=== PATIENT | male | born 1940 | race Caucasian/White ===

== ENCOUNTER 2018-11-11 16:26 | Emergency (ER) | payer MEDICARE ==
[~2018-11-11] VITALS: Ht 162.6 cm; Wt 74.8 kg
[~2018-11-11 16:26] MED LIST: ACETAMINOPHEN325 M1 PO; ASPIRIN EC81 MG PO; CALCIUM + VITA1 EACH PO; CIPROFLOXACIN500 MG PO; FLOMAX0.4 MG PO; GABAPENTIN300 MG PO; GARLIC1000 MG PO; IBUPROFEN800 MG PO; LISINOPRIL5 MG PO; METHOCARBAMOL750 MG PO; MIRALAX17 GM PO; NORCO 5-325 TA1 EACH PO; OXYCODONE HCL5 MG PO; PYRIDIUM200 MG PO; XARELTO10 MG PO; [UNRECOGNIZED DRUG - OTHER] PO
[2018-11-11] MEDS ORDERED: ALBUTEROL1.25 MG/3 INH (16:44)
[2018-11-11] MEDS ORDERED: VENTOLIN HFA18 GM INH (16:45)
[2018-11-11] MEDS ORDERED: ZITHROMAX500 MG PO (19:09)
[2018-11-11] MEDS ORDERED: CEFDINIR300 MG PO (19:09)
== END 2018-11-11 19:22 | disposition left against medical advice (07) ==
LOC: ED 16:26
DX: J44.0 Chronic obstructive pulmonary disease with (acute) lower respiratory infection (principal); J18.1 Lobar pneumonia, unspecified organism; I10 Essential (primary) hypertension; Z90.49 Acquired absence of other specified parts of digestive tract; Z88.0 Allergy status to penicillin; Z88.2 Allergy status to sulfonamides; Z88.5 Allergy status to narcotic agent; Z88.8 Allergy status to other drugs, medicaments and biological substances; Z79.899 Other long term (current) drug therapy
CPT/HCPCS: 71046; 80053; 83735; 83880; 84484; 85025; 94640; 96365; 99284-25; J0696

== ENCOUNTER 2019-07-19 23:10 | Emergency (ER) | payer MEDICARE ==
[~2019-07-19] VITALS: Ht 162.6 cm; Wt 68.9 kg
--- OUTSIDE RECORDS SUMMARY | ~2019-07-19 | XMS | Clinical Summary ---
Demographics + + + | Address | [address] | | | [place] [address] | + + + | Home Phone | | + + + | Preferred Language | Unknown | + + + | Marital Status | | + + + | Voodoo Affiliation | Unknown | + + + | Race | Unknown | + + + | Ethnic Group | Unknown | + + + Author + + + | Author | [facility] | | | and [place] | + + + | Organization | [facility] | | | and [place] | + + + | Address | Unknown | + + + | Phone | Unavailable | + + + Support + + + + + | Name | Relationship | Address | Phone | + + + + + | Carmen Schafer | ECON | [place] | | | | | [phone] | | + + + + + Care Team Providers + +------+ + | Care Water Main Inspector Name | Role | Phone | + +------+ + | Roland Waters MD | PCP | | + +------+ + Allergies + + + + + + | Active Allergy | Reactions | Severity | Noted | Comments | | | | | Date | | + + + + + + | Corticosteroids | | | 04/10/20 | | | | | | 16 | | + + + + + + | Morphine | | | 04/10/20 | | | | | | 16 | | + + + + + + | Penicillins | | | 04/10/20 | | | | | | 16 | | + + + + + + | Sulfa Antibiotics | | | 04/10/20 | | | | | | 16 | | + + + + + + Medications + + + +---------+------+------+-------+ | Medication | Sig | Dispensed | Refills | Star | End | Statu | | | | | | t | Date | s | | | | | | Date | | | + + + +---------+------+------+-------+ | Calcium | Take 2,000 mg by | | 0 | | | Activ | | Carb-Cholecalciferol | mouth Daily. | | | | | e | | (CALCIUM-VITAMIN | | | | | | | | D3) 600-400 MG-UNIT | | | | | | | | CAPS | | | | | | | + + + +---------+------+------+-------+ | gabapentin | Take 300 mg by mouth | | 0 | | | Activ | | (NEURONTIN) 300 mg | 2 times daily. | | | | | e | | capsule | | | | | | | + + + +---------+------+------+-------+ | Garlic 1000 MG | Take 2,000 mg by | | 0 | | | Activ | | CAPS | mouth. | | | | | e | + + + +---------+------+------+-------+ | lisinopril | Take 5 mg by mouth | | 0 | | | Activ | | (PRINIVIL, ZESTRIL) | Daily. | | | | | e | | 5 mg tablet | | | | | | | + + + +---------+------+------+-------+ | polyethylene | Take 17 g by mouth | | 0 | | | Activ | | glycol (MIRALAX) | Daily. | | | | | e | | powder | | | | | | | + + + +---------+------+------+-------+ | oxyCODONE | Take 5 mg by mouth | | 0 | | | Activ | | (ROXICODONE) 5 mg | every 4 hours as | | | | | e | | tablet | needed for Pain. | | | | | | + + + +---------+------+------+-------+ | | Take 1 tablet by | | 0 | | | Activ | | HYDROcodone-acetamin | mouth every 6 hours | | | | | e | | ophen (NORCO) | as needed for Pain. | | | | | | | 7.5-325 mg per | | | | | | | | tablet | | | | | | | + + + +---------+------+------+-------+ | varenicline | Take 1 mg by mouth 2 | | 0 | | | Activ | | (CHANTIX) 1 MG | times daily. | | | | | e | | tablet | | | | | | | + + + +---------+------+------+-------+ | Multiple | Take by mouth | | 0 | | | Activ | | Vitamins-Minerals | Daily. | | | | | e | | (MULTIVITAMIN PO) | | | | | | | + + + +---------+------+------+-------+ Active Problems + + + | Problem | Noted Date | + + + | Trochanteric bursitis of both hips | 05/20/2016 | + + + | Lumbar spinal stenosis- L2/L3, L3/L4, L4/L5 - severe | 04/14/2016 | + + + | Lumbar radiculopathy- left | 04/14/2016 | + + + | DDD (degenerative disc disease), lumbar | 04/14/2016 | + + + Family History + + +------+ + | Medical History | Relation | Name | Comments | + + +------+ + | Hypertension | Brother | | | + + +------+ + | Arthritis | Father | | | + + +------+ + | Cancer | Maternal | | | | | Grandmoth | | | | | er | | | + + +------+ + | Arthritis | Mother | | | + + +------+ + | Diabetes | Mother | | | + + +------+ + | Heart disease | Mother | | | + + +------+ + | Hypertension | Mother | | | + + +------+ + | Arthritis | Other | | sibling | + + +------+ + | Other (see comment) | Other | | JOINT REPLACEMENT SIBLING | + + +------+ + | Arthritis | Other | | grandmother | + + +------+ + | Arthritis | Other | | grandfather | + + +------+ + | Arthritis | Other | | uncle | + + +------+ + | Arthritis | Other | | aunt | + + +------+ + + +------+ + + | Relation | Name | Status | Comments | + +------+ + + | Brother | | | | + +------+ + + | Father | | | Heart Failure | | | | (Age | | | | | 88) | | + +------+ + + | Maternal Grandmother | | | Cancer | | | | (Age | | | | | 63) | | + +------+ + + | Mother | | | Drowned | | | | (Age | | | | | 39) | | + +------+ + + | Other | | | | + +------+ + + | Other | | | | + +------+ + + | Other | | | | + +------+ + + | Other | | | | + +------+ + + | Other | | | | + +------+ + + Social History + + + +--------+ + | Tobacco Use | Types | Packs/Day | Years | Date | | | | | Used | | + + + +--------+ + | Former Smoker | Cigarettes | 1 | 65 | Quit: 04/07/2016 | + + + +--------+ + + + +---------+ + | Alcohol Use | Drinks/We | oz/Week | Comments | | | ek | | | + + +---------+ + | Yes | 0 | 0.0 | more than twice a week | | | Standard | | | | | drinks or | | | | | | | | | | equivalen | | | | | t | | | + + +---------+ + + + + | Sex Assigned at | Date Recorded | | | | + + + | Not on file | | + + + + + + + | Job Start Date | Occupation | Industry | + + + + | Not on file | Not on file | Not on file | + + + + + + + + | Travel History | Travel Start | Travel End | + + + + + + | No recent travel history available. | + + Last Filed Vital Signs + + + + | Vital Sign | Reading | Time Taken | + + + + | Blood Pressure | 146/66 | 05/20/20168 PDT | + + + + | Pulse | 60 | 05/20/20168 PDT | + + + + | Temperature | - | - | + + + + | Respiratory Rate | - | - | + + + + | Oxygen Saturation | - | - | + + + + | Inhaled Oxygen | - | - | | Concentration | | | + + + + | Weight | 74.4 kg (164 lb) | 05/20/20161317 PDT | + + + + | Height | 162.6 cm (5' 4") | 05/20/20161317 PDT | + + + + | Body Mass Index | 28.15 | 05/20/20161317 PDT | + + + + Plan of Treatment + + + + + | Health Maintenance | Due Date | Last Done | Comments | + + + + + | Vaccine: | | | | | Dtap/Tdap/Td (1 - | 7 | | | | Tdap) | | | | + + + + + | Vaccine: Zoster (1 | | | | | of 2) | 8 | | | + + + + + | Vaccine: | | | | | Pneumococcal 65+ | 3 | | | | Low/Medium Risk (1 | | | | | of 2 - PCV13) | | | | + + + + + | Vaccine: Influenza | | | | | (#1) | 9 | | | + + + + + Results Not on filefrom Last 3 Months Advance Directives Patient has advance care planning documents on file. For more information, please contact:[facility] [place] [address]
--- OUTSIDE RECORDS SUMMARY | ~2019-07-19 | XMS | Clinical Summary ---
Demographics + + + | Address | [address] | | | [place] [address] | + + + | Home Phone | | + + + | Preferred Language | Unknown | + + + | Marital Status | | + + + | Religion Affiliation | Unknown | + + + | Race | Unknown | + + + | Ethnic Group | Unknown | + + + Author + + + | Author | [facility] | | | and [place] | + + + | Organization | [facility] | | | and [place] | + + + | Address | Unknown | + + + | Phone | Unavailable | + + + Support + + + + + | Name | Relationship | Address | Phone | + + + + + | Carmen Schafer | ECON | [place] | | | | | [phone] | | + + + + + Care Team Providers + +------+ + | Care Plastic Extruding Machine Operator Name | Role | Phone | + [...] documents on file. For more information, please contact:[facility] [place] [address]
[~2019-07-19 23:10] MED LIST changes: +ALBUTEROL1.25 MG/3 INH; +CEFDINIR300 MG PO; +VENTOLIN HFA18 GM INH; +ZITHROMAX500 MG PO
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
== END 2019-07-20 01:48 | disposition home or self-care (01) ==
LOC: ED 23:10
DX: J32.9 Chronic sinusitis, unspecified (principal); I10 Essential (primary) hypertension; Z87.891 Personal history of nicotine dependence; Z88.0 Allergy status to penicillin; Z88.2 Allergy status to sulfonamides; Z88.5 Allergy status to narcotic agent; Z88.8 Allergy status to other drugs, medicaments and biological substances; Z79.899 Other long term (current) drug therapy
CPT/HCPCS: 71045; 80053; 81001; 85025; 96361; 96374; 96375; 99284-25; J1200; J1885; J2765; J7030

== ENCOUNTER 2020-04-09 14:18 | Emergency (ER) | payer MEDICARE ==
[~2020-04-09] VITALS: Ht 162.6 cm; Wt 69.0 kg
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
[2020-04-09] MEDS ORDERED: [UNRECOGNIZED DRUG - OTHER] PO (14:32)
[2020-04-09] MEDS ORDERED: METOPROLOL TART25 MG PO (14:33)
--- NOTE | 2020-04-09 15:32 | EKG ---
[facility] [address] [place] [address] Signed Sinus rhythm with premature atrial complexes Low voltage QRS Borderline ECG When compared with ECG of 29-SEP-2016 17:03, premature atrial complexes are now present Confirmed by CARIE WALDRON MD ([id number]) on 04/09/2020 3:32:24 PM Electronically Signed By: CARIE WALDRON MD 04/09/20 1532 PATIENT NAME: GENET KIRAN Electrocardiogram DATE OF : 36 PHYSICIAN: CARIE WALDRON MD REPORT #: [id number] REPORT IS CONFIDENTIAL AND NOT TO BE RELEASED WITHOUT AUTHORIZATION
[2020-04-09] MEDS ORDERED: PREDNISONE20 MG PO (16:27)
== END 2020-04-09 17:01 | disposition home or self-care (01) ==
LOC: ED 14:18
DX: J44.1 Chronic obstructive pulmonary disease with (acute) exacerbation (principal); I10 Essential (primary) hypertension; F17.200 Nicotine dependence, unspecified, uncomplicated; Z88.0 Allergy status to penicillin; Z88.2 Allergy status to sulfonamides; Z88.5 Allergy status to narcotic agent; Z88.8 Allergy status to other drugs, medicaments and biological substances; Z79.899 Other long term (current) drug therapy
CPT/HCPCS: 36415; 71045; 80053; 83735; 84484; 85025; 93005; 93010; 96374; 99285-25; C9803; J2930; U0002

== ENCOUNTER 2021-12-16 22:01 | Observation (INO) | payer MEDICARE ==
[~2021-12-16] VITALS: Ht 162.6 cm; Wt 54.7 kg
[~2021-12-16 22:01] MED LIST changes: +METOPROLOL TART25 MG PO; +PREDNISONE20 MG PO; +[UNRECOGNIZED DRUG - OTHER] PO
--- OUTSIDE RECORDS SUMMARY | 2021-12-16 22:04 | XMS ---
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 Security Tile Erector Events No recent Security Events currently on file CRITERIA MET - [facility] CARE PROVIDERS LOU BARBOZA Physician Shredding Floor Equipment Operator Current PHONE: [phone] ISABELLE NICHOLE [facility] 11/15/2018-Current PHONE: Unknown Marjorie has no Care Guidelines for this patient. Care History Medical/Surgical 04/11/2020 [facility] Request sent to [facility] via telephone for referral to perform rest and exercise oximetry. E.D. VISIT COUNT (12 MO.) [address] [place] [address] TOTAL 1 NOTE: Visits indicate total known visits. ED/UCC VISIT TRACKING (12 MO.) 12/16/2021 22:01 [facility] [place] TYPE: Emergency COMPLAINT: - HEAD INJURY INPATIENT VISIT TRACKING (12 MO.) No inpatient visits to display in this time frame [id number]
--- NOTE | 2021-12-17 00:29 | NUR ---
TELEPHONE REPORT RECEIVED FROM ED JONAH ARIAS. QUESTIONS ANSWERED, AWAITING pt's ARRIVAL TO [facility] FLOOR. SENIOR SOFTWARE DEVELOPMENT MANAGERJONAH GRIMES AWARE AND UPDATED.
--- NOTE | 2021-12-17 01:15 | NUR ---
pt ARRIVED TO THE [facility] FLOOR FROM THE ED. TELE AND CPOX IN PLACE, NSR-RATE WNL. pt REPOSITIONED IN BED, HOB ELEVATED. SMALL LACERATIONS X2 TO TOP OF STERNUM DRESSED WITH STERI STRIPS. SCATTERED BRUSIES AND ABRASIONS ALSO NOTED, SEE WOUND ASSESSMENT. IV SITE WNL, FLUSHES EASILY. FLUIDS INFUSING DIRECTED. BED ALARM ON FOR SAFETY AND CALL LIGHT IN REACH. pt ORIENTED TO ROOM, CONGREGATIONAL CARE PASTORJONAH GRIMES REMAINS IN ROOM FOR ADMISSION. pt DENIES NEED TO VOID, WILL MONITOR. CALL LIGHT IN REACH.
--- NOTE | 2021-12-17 02:54 | NUR ---
TELE LEAD OFF, REPLACED. NO FURTHER NEEDS OR CONCERNS VERBALIZED. CALL LIGHT IN REACH.
--- NOTE | 2021-12-17 04:12 | NUR ---
call ligth answered, prn pain medication given (see emar) for 10/10 pain. iv site wnl, fresh water provided. pt denies need to void, will monitor and attempt to get urine sample with am vs. no further needs, call light in reach and bed alarm on.
--- NOTE | 2021-12-17 04:31 | NUR ---
ROUNDED ON pt, pt REPORTS PAIN IMPROVED AND IS WENT FROM 10/10 TO A TOLERABLE 4/10. NO FURTHER NEEDS, CALL LIGHT IN REACH AND BED ALARM ON FOR SAFETY.
--- NOTE | 2021-12-17 05:47 | NUR ---
I&O'S COMPLETE, UA COLLECTED AND SENT TO LAB. pt AWAKE AND RESTING IN BED, BED ALARM ON. SARA ZARAGOZA IN ROOM TO COLLECT VS. CALL LIGHT IN REACH.
--- NOTE | 2021-12-17 08:26 | NUR ---
ROUNDED ON PT. PT REPORTING 8/10 PAIN. 0.4 DILAUDID ADMINISTERED. TRANSFERED PT TO W/C TO GO DOWN FOR X-RAY. PT WITH MINIMAL ASSIST.
--- NOTE | 2021-12-17 08:45 | NUR ---
PT BACK FROM IMAGING. ASSITED TO BATHROOM. SBA WITH FWW TO CHAIR FOR CLEAR LIQUID BREAKFAST. PT TOLERATED WELL WITH NO ASSISTNANCE. PT REPORTS HE WAS HAVING LOTS OF PAIN WITGH AMBULATION AND THATS WHY HE WAS MOVING SLOW. REPORTS PAIN STILL 8/10. CALL LIGHT AND PERSONAL ITEMS WITHING REACH.
--- NOTE | 2021-12-17 10:41 | NUR ---
PT AWAKE IN BED EATING BREAKFAST. CALL LIGHT IN REACH. NO FURTHER NEEDS AT THIS TIMTE
--- NOTE | 2021-12-17 11:15 | NUR ---
Spoke with Hesham, he is anxious to go home. States he can sit at home as well as sitting here. He denies needs and states he has all the equip- ment he needs at home. He has two daughters living with him and who will assist him as needed. Discussed he will need to see Dr. Mcduffie for discharge. Pt plans on dc to home today, if is in agreement.
--- NOTE | 2021-12-17 12:40 | NUR ---
patient has his eyes closed up in chair, appear in NAD at this time.
--- NOTE | 2021-12-17 13:28 | NUR ---
PT RESTING IN CHAIR. WARM BLANKETS GIVEN. PT DOES NOT FEEL THE URGE TO USE THE RESTROOM YET. RN GLENIS NOTIFIED. NO FURTHER NEEDS AT THIS TIME. CALL LIGHT IN REACH.
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
--- NOTE | 2021-12-17 15:02 | NUR ---
ROUNDED ON PT. PAIN REPORTED AT 6. NEW BAG OF LR STARTED. WIKLL ATTEMPT TO GET PT TO VOID.
--- NOTE | 2021-12-17 15:22 | NUR ---
Patient up to the bathroom, voided x 1, passing gas but no stool. He is slow, with ambulation but only needed SBA with a FWW. He is still hoping to go home this evening. Step-daughter Lynnette called for and updated and she was updated regarding POC.
--- NOTE | 2021-12-17 16:40 | NUR ---
ROUNDED WITH DR MULTANI. PT FEELS READY TO GO HOME AND SAYS HE HAS 2 DAUGHTERS TO HELP. PAIN IS WELL CONTROLLED, PT WAS ABLE TO VOID AND ATE 50% OF LUNCH. LYN TURNER.
[2021-12-17] MEDS ORDERED: OXYCODON-ACETA1 EAC2 PO (16:51)
[2021-12-17] MEDS ORDERED: CIPROFLOXACIN500 MG PO (16:51)
[2021-12-17] MEDS ORDERED: MOTRIN IB200 MG PO (16:54)
[2021-12-17] MEDS ORDERED: TYLENOL EXTRA500 MG PO (16:54)
--- NOTE | 2021-12-17 17:47 | NUR ---
DISCHARGE INSTRUCTIONS PROVIDED TO PT AND DAUGHTER. ALL QUESTIONS ANSWERED. PT DENEIS PAIN AT THIS TIME. IV DC'D AND WNL. EDUCATION PROVIDED FOR S/SX OF INFECTIOMN TO IV SITE. FOLLOW UP DISCUSSED. PRESCRIPTION PROVIDED AND PHARMACY IN TO DISCUSS MEDS AND SIDE EFFECTS. PT DAUGHTER ASSISTED IN GETTING DRESSED. PT WHEELED OUT.
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
== END 2021-12-17 17:45 | disposition home or self-care (01) ==
LOC: ED 22:01 → MS 22:02
PROVIDERS: ADMIT Surgery; ATTEND Surgery
DX: S27.0XXA Traumatic pneumothorax, initial encounter (principal); S27.321A Contusion of lung, unilateral, initial encounter; S22.32XA Fracture of one rib, left side, initial encounter for closed fracture; S40.012A Contusion of left shoulder, initial encounter; S01.81XA Laceration without foreign body of other part of head, initial encounter; S21.111A Laceration without foreign body of right front wall of thorax without penetration into thoracic cavity, initial encounter; I10 Essential (primary) hypertension; J44.9 Chronic obstructive pulmonary disease, unspecified; F17.200 Nicotine dependence, unspecified, uncomplicated; N39.0 Urinary tract infection, site not specified; Y00.XXXA Assault by blunt object, initial encounter; X99.1XXA Assault by knife, initial encounter; Y92.009 Unspecified place in unspecified non-institutional (private) residence as the place of occurrence of the external cause; Z96.642 Presence of left artificial hip joint; Z88.0 Allergy status to penicillin; Z88.2 Allergy status to sulfonamides; Z88.8 Allergy status to other drugs, medicaments and biological substances; Z88.5 Allergy status to narcotic agent; Z20.822 Contact with and (suspected) exposure to COVID-19; Z23 Encounter for immunization
CPT/HCPCS: 36415; 70450; 71045; 71046; 71260; 72125; 74177; 80053; 81001; 83690; 85025; 86850; 86900; 86901; 87088; 90471; 90715; 96375; 96376; 99285-25; C9803; G0378; G0480; J1170; J2405; J7121; U0003

== ENCOUNTER 2022-12-12 00:24 | Emergency (ER) | payer MEDICAID ==
[~2022-12-12] VITALS: Ht 162.6 cm; Wt 57.8 kg
[~2022-12-12 00:24] MED LIST changes: +CENTRUM SILVER1 EAC6 PO; +CIPROFLOXACIN HC5 ML OS; +IPRAT-ALBUT 0.5-3 ML INH; +LEVOFLOXACIN750 MG PO; +MOTRIN IB200 MG PO; +OXYCODON-ACETA1 EAC2 PO; +TYLENOL EXTRA500 MG PO; +VARENICLINE TART1 MG PO; +VITAMIN A2400 MCG PO; +VITAMIN B-121000 MCG PO
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
== END 2022-12-12 02:08 | disposition home or self-care (01) ==
LOC: ED 00:24
DX: T83.098A Other mechanical complication of other urinary catheter, initial encounter (principal); I10 Essential (primary) hypertension; J44.9 Chronic obstructive pulmonary disease, unspecified; F17.200 Nicotine dependence, unspecified, uncomplicated; M19.90 Unspecified osteoarthritis, unspecified site; Z88.0 Allergy status to penicillin; Z88.2 Allergy status to sulfonamides; Z88.5 Allergy status to narcotic agent; Z79.899 Other long term (current) drug therapy; Z88.8 Allergy status to other drugs, medicaments and biological substances
CPT/HCPCS: 51702; 51798; 81001; 99283-25

== ENCOUNTER 2023-01-14 01:25 | Emergency (ER) | payer MEDICAID ==
[~2023-01-14] VITALS: Ht 162.6 cm; Wt 63.0 kg
--- OUTSIDE RECORDS SUMMARY | 2023-01-14 01:28 | XMS ---
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 Care History Medical/Surgical 04/11/2020 [facility] Request sent to [facility] via telephone for referral to perform rest and exercise oximetry. E.DEla VISIT COUNT (12 MO.) 4 [facility]. TOTAL 4 NOTE: Visits indicate total known visits. ED/UCC VISIT TRACKING (12 MO.) 01/14/2023 01:25 [facility] TYPE: Emergency COMPLAINT: - URINE PROBLEM 12/22/2022 12:58 [facility] TYPE: Emergency COMPLAINT: - CATHETER REPLACEMENT 12/12/2022 00:24 [facility] TYPE: Emergency COMPLAINT: - URINE RETENTION DIAGNOSES: - Nicotine dependence, unspecified, uncomplicated - Allergy status to narcotic agent - Allergy status to sulfonamides - Pelvic and perineal pain - Allergy status to other drugs, medicaments and biological substances - Retention of urine, unspecified - Chronic obstructive pulmonary disease, unspecified - Essential (primary) hypertension - Unspecified osteoarthritis, unspecified site - Allergy status to penicillin - Other mechanical complication of other urinary catheter, initial encounter - 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 10/20/2022 11:14 [facility] TYPE: Emergency COMPLAINT: - DIFFICULTY BREATHING, COUGH, CONGESTION INPATIENT VISIT TRACKING (12 MO.) 10/20/2022 11:15 [facility] [place] TYPE: Observation COMPLAINT: - COPD EXACERBATION, PNEUMONIA DIAGNOSES: - Other group home (current) drug therapy - Allergy status to penicillin - Allergy status to analgesic agent - Shortness of breath - Allergy status to narcotic agent - Retention of urine, unspecified - Acute respiratory failure with hypoxia - Chronic obstructive pulmonary disease with (acute) exacerbation - Weakness - Essential (primary) hypertension - Allergy status to sulfonamides - Contact with and (suspected) exposure to COVID-19 - Nicotine dependence, cigarettes, uncomplicated - Unspecified conjunctivitis - Unspecified osteoarthritis, unspecified site - Urinary tract infection, site not specified [email or web address]
[2023-01-14] MEDS ORDERED: PYRIDIUM200 MG PO (02:55)
[2023-01-15] MEDS ORDERED: HYDROCODON-ACE1 EA10 PO (03:31)
--- NOTE | 2023-01-15 21:24 | EKG ---
[facility] [address] [place] [address] Signed Sinus rhythm with marked sinus arrhythmia Left axis deviation Abnormal ECG When compared with ECG of 09-APR-2020 14:26, premature atrial complexes are no longer present QT has shortened Confirmed by BO LIRA MD ([id number]) on 01/15/2023 9:24:34 PM Electronically Signed By: BO LIRA MD 01/15/232123 PATIENT NAME: CRISTOPHER KIRANMILEY ALEXIS Electrocardiogram DATE OF : 36 PHYSICIAN: BO LIRA MD REPORT #: [id number] REPORT IS CONFIDENTIAL AND NOT TO BE RELEASED WITHOUT AUTHORIZATION
== END 2023-01-14 03:06 | disposition home or self-care (01) ==
LOC: ED 01:25
DX: N32.89 Other specified disorders of bladder (principal); M19.90 Unspecified osteoarthritis, unspecified site; I10 Essential (primary) hypertension; J44.9 Chronic obstructive pulmonary disease, unspecified; I48.91 Unspecified atrial fibrillation; F17.200 Nicotine dependence, unspecified, uncomplicated; Z88.0 Allergy status to penicillin; Z88.2 Allergy status to sulfonamides; Z88.5 Allergy status to narcotic agent; Z79.899 Other long term (current) drug therapy
CPT/HCPCS: 81001; 93005; 93010; 99285-25

== ENCOUNTER 2023-01-15 02:40 | Emergency (ER) | payer MEDICAID ==
[~2023-01-15] VITALS: Ht 162.6 cm; Wt 63.0 kg
--- OUTSIDE RECORDS SUMMARY | 2023-01-15 02:42 | XMS ---
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 Current PHONE: Unknown Marjorie has no Care Guidelines for this patient. Care History Medical/Surgical 04/11/2020 [facility] Request sent to [facility] via telephone for referral to perform rest and exercise oximetry. E.DEla VISIT COUNT (12 MO.) 5 [facility]. TOTAL 5 NOTE: Visits indicate total known visits. ED/UCC VISIT TRACKING (12 MO.) 01/15/2023 02:40 [facility] TYPE: Emergency COMPLAINT: - CATHETER PROBLEM 01/14/2023 01:25 [facility] TYPE: Emergency COMPLAINT: - URINE PROBLEM 12/22/2022 12:58 [facility] TYPE: Emergency COMPLAINT: - CATHETER REPLACEMENT 12/12/2022 00:24 [facility] TYPE: Emergency COMPLAINT: - URINE RETENTION DIAGNOSES: - Other mechanical complication of other urinary catheter, initial encounter - Other residential (current) drug therapy - Nicotine dependence, unspecified, uncomplicated - Allergy status to narcotic agent - Allergy status to sulfonamides - Pelvic and perineal pain - Allergy status to other drugs, medicaments and biological substances - Retention of urine, unspecified - Chronic obstructive pulmonary disease, unspecified - Essential (primary) hypertension - Unspecified osteoarthritis, unspecified site - Allergy status to penicillin 10/20/2022 11:14 [facility] [place] TYPE: Emergency COMPLAINT: - DIFFICULTY BREATHING, COUGH, CONGESTION INPATIENT VISIT TRACKING (12 MO.) 10/20/2022 11:[address] [facility] [place] TYPE: Observation COMPLAINT: - COPD EXACERBATION, PNEUMONIA DIAGNOSES: - Unspecified conjunctivitis - Unspecified osteoarthritis, unspecified site - Urinary tract infection, site not specified - Other residential (current) drug therapy - Allergy status to [...] to COVID-19 - Nicotine dependence, cigarettes, uncomplicated [email or web address]
[2023-01-15] MEDS ORDERED: HYDROCODON-ACE1 EA10 PO (03:31)
== END 2023-01-15 03:53 | disposition home or self-care (01) ==
LOC: ED 02:40
DX: Z46.6 Encounter for fitting and adjustment of urinary device (principal); M19.90 Unspecified osteoarthritis, unspecified site; I10 Essential (primary) hypertension; J44.9 Chronic obstructive pulmonary disease, unspecified; I48.91 Unspecified atrial fibrillation; F17.200 Nicotine dependence, unspecified, uncomplicated; Z88.0 Allergy status to penicillin; Z88.2 Allergy status to sulfonamides; Z88.5 Allergy status to narcotic agent; Z79.899 Other long term (current) drug therapy
CPT/HCPCS: 99283; A9270

== ENCOUNTER 2024-02-28 00:19 | Emergency (ER) | payer MEDICARE ==
[~2024-02-28] VITALS: Ht 162.6 cm; Wt 62.0 kg
[~2024-02-28 00:19] MED LIST changes: +HYDROCODON-ACE1 EA10 PO
[2024-02-28] MEDS ORDERED: KETOROLAC TROMETHAMINE 30 MG/ML VIAL IM ONE (01:30)
[2024-02-28 02:27] VITALS: BP 164/59
== END 2024-02-28 02:27 | disposition home or self-care (01) ==
LOC: ED 00:19
DX: M19.012 Primary osteoarthritis, left shoulder (principal); I10 Essential (primary) hypertension; J44.9 Chronic obstructive pulmonary disease, unspecified; F17.200 Nicotine dependence, unspecified, uncomplicated; Z96.642 Presence of left artificial hip joint; Z88.0 Allergy status to penicillin; Z88.2 Allergy status to sulfonamides; Z88.5 Allergy status to narcotic agent; Z88.8 Allergy status to other drugs, medicaments and biological substances; Z79.899 Other long term (current) drug therapy
CPT/HCPCS: 73030; 96372; 99283-25; J1885

== ENCOUNTER 2024-10-26 14:07 | Emergency (ER) | payer MEDICARE, MEDICAID ==
[~2024-10-26] VITALS: Ht 162.6 cm; Wt 64.9 kg
[2024-10-26 15:08] LABS: INFLUENZA B NAA NEGATIVE (NEGATIVE); RESPIRATORY SYNCYTIAL VIR NAA NEGATIVE (NEGATIVE)
[2024-10-26] MEDS ORDERED: ZITHROMAX250 MG PO (15:58)
[2024-10-26] MEDS ORDERED: AZITHROMYCIN 250 MG TAB PO ONE (16:00)
[2024-10-26 16:15] VITALS: BP 144/76
--- NOTE | 2024-10-26 22:27 | EKG ---
[facility] [address] [place] [address] Signed Sinus rhythm with premature atrial complexes Left axis deviation Abnormal ECG When compared with ECG of 14-JAN-2023 01:42, premature atrial complexes are now present QT has lengthened Confirmed by Maria Elena Dubon MD () on 10/26/2024 10:27:21 PM Electronically Signed By: MARIA ELENA DUBON MD 10/26/24 2227 PATIENT NAME: MAHAD KIRAN Electrocardiogram DATE OF : 36 PHYSICIAN: MARIA ELENA DUBON MD REPORT #: [id number] REPORT IS CONFIDENTIAL AND NOT TO BE RELEASED WITHOUT AUTHORIZATION
== END 2024-10-26 16:15 | disposition home or self-care (01) ==
LOC: ED 14:07
PROVIDERS: Emergency Medicine
DX: J06.9 Acute upper respiratory infection, unspecified (principal); J44.9 Chronic obstructive pulmonary disease, unspecified; I10 Essential (primary) hypertension; I48.91 Unspecified atrial fibrillation; F17.200 Nicotine dependence, unspecified, uncomplicated; Z88.0 Allergy status to penicillin; Z88.2 Allergy status to sulfonamides; Z88.5 Allergy status to narcotic agent; Z88.8 Allergy status to other drugs, medicaments and biological substances; Z79.899 Other long term (current) drug therapy
CPT/HCPCS: 87502; 93005; 93010; 99283; U0002

== ENCOUNTER 2025-09-20 13:56 | Emergency (ER) | payer MEDICARE, MEDICAID ==
[~2025-09-20] VITALS: Ht 162.6 cm; Wt 56.5 kg
[~2025-09-20 13:56] MED LIST changes: +ZITHROMAX250 MG PO
[2025-09-20] MEDS ORDERED: ALBUTEROL/IPRATROPIUM 3 ML NEB INH ONE (14:30)
[2025-09-20 14:39] LABS: BASOPHILS 0.8 % (0.2-1.2); EOSINOPHILS 0.6 % (0.8-7.0); LYMPHOCYTES 19.9 % (21.8-53.1); MCH 29.6 PG (25.7-32.2); MCHC 31.3 g/dL (32.3-36.5); MCV 94.5 fL (79.0-92.2); MONOCYTES 6.5 % (5.3-12.2); NEUTROPHILS 71.9 % (34.0-67.9); RBC 3.82 M/uL (4.63-6.08)
[2025-09-20 15:11] LABS: ALT (SGPT) 19.0 U/L (14-59); AST (SGOT) 18.0 U/L (15-37); GLOMERULAR FILTRATION RATE,EST 55.0 mL/min (>60); PROTEIN, TOTAL 7.0 g/dL (6.4-8.2); UREA NITROGEN 20.0 mg/dL (7-18)
[2025-09-20] MEDS ORDERED: AZITHROMYCIN 250 MG TAB PO ONE (15:45)
[2025-09-20] MEDS ORDERED: LEVOFLOXACIN500 MG PO (17:17)
[2025-09-20] MEDS ORDERED: POTASSIUM CHLO10 ME2 PO (17:28)
[2025-09-20 17:47] VITALS: BP 143/68
--- NOTE | 2025-09-21 22:36 | EKG ---
[facility] [address] [facility] [place] [address] Signed Normal sinus rhythm with sinus arrhythmia Septal infarct , age undetermined Abnormal ECG When compared with ECG of 26-OCT-2024 14:43, premature atrial complexes are no longer present Septal infarct is now present Confirmed by Maria Elena Dubon MD () on 09/21/2025 10:35:51 PM Electronically Signed By: MARIA ELENA DUBON MD 09/21/25 2236 PATIENT NAME: MAHAD KIRAN Electrocardiogram DATE OF : 36 PHYSICIAN: MARIA ELENA DUBON MD REPORT #: [id number] REPORT IS CONFIDENTIAL AND NOT TO BE RELEASED WITHOUT AUTHORIZATION
== END 2025-09-20 17:50 | disposition home or self-care (01) ==
LOC: ED 13:56
DX: J18.9 Pneumonia, unspecified organism (principal); M19.90 Unspecified osteoarthritis, unspecified site; I10 Essential (primary) hypertension; J44.9 Chronic obstructive pulmonary disease, unspecified; I48.91 Unspecified atrial fibrillation; F17.200 Nicotine dependence, unspecified, uncomplicated; Z88.0 Allergy status to penicillin; Z88.2 Allergy status to sulfonamides; Z88.5 Allergy status to narcotic agent; Z79.2 Long term (current) use of antibiotics
CPT/HCPCS: 36415; 71045; 71260; 73030; 80053; 83735; 83880; 84484; 85025; 93005; 93010; 94640; 96365; 96375; 99285-25; J0696; J2919; Q9967